=== PATIENT | female | born 1975 | race Caucasian/White ===

== ENCOUNTER 2021-03-19 12:21 | Emergency (ER) | payer OTHER ==
[2021-03-19 12:57] LABS: HEMOGLOBIN 14.7 gm/dl (12.3-15.3); RED BLOOD COUNT 4.89 M/UL (4.00-5.10); WHITE BLOOD COUNT 9.5 K/UL (4.5-11.0)
[2021-03-19 13:21] LABS: BUN/CREATININE RATIO 15 (0-10)
[2021-03-19] MEDS ORDERED: FLOMAX 0.4 MG0.4 MG PO ×2 (13:50→14:42)
[2021-03-19] MEDS ORDERED: IBUPROFEN600 MG PO ×2 (13:50→14:42)
[2021-03-19] MEDS ORDERED: HYDROCODON-ACE1 EAC4 PO ×2 (13:52→14:41)
== END 2021-03-19 13:57 | disposition home or self-care (01) ==
LOC: ER1 12:21
PROVIDERS: Nurse Practitioner
DX: N20.0 Calculus of kidney (principal)
CPT/HCPCS: 72131; 80053; 81001; 84703; 85025; 96374; 96375; 99284; J1100; J1885; J2360; J2405